=== PATIENT | male | born 1995 | race Caucasian/White ===

== ENCOUNTER 2017-05-22 01:41 | Emergency (ER) | payer SELFPAY ==
[~2017-05-22] VITALS: Ht 193 cm; Wt 88.6 kg
[2017-05-22 02:20] LABS: BASO # 0.1 (0.0-0.2); BASO % 0.8 % (0.0-2.0); EOS # 0.1 (0.0-0.7); EOS % 1.7 % (0-4.0); GRAN # 3.4 (1.4-6.5); GRAN % 54.1 % (42.2-75.2); HEMATOCRIT 45.4 % (42.0-52.0); HEMOGLOBIN 15.6 g/dl (13.5-18.0); LYMPH # 2.4 (1.2-3.4); MEAN CELL VOLUME 88 fl (80.0-100.0); MEAN CORPUSCULAR HEMOGLOBIN 30 pg (27.0-31.0); MEAN CORPUSCULAR HGB CONC 34 g/dl (33.0-37.0); MEAN PLATELET VOLUME 9.4 fl (7.4-10.4); MONO # 0.3 (0.1-0.6); MONO % 5.1 % (1.7-9.3); PLATELET COUNT 238 K/mm3 (130-400); RED BLOOD COUNT 5.19 M/mm3 (4.20-5.60); WHITE BLOOD COUNT 6.3 K/mm3 (4.8-10.8)
[2017-05-22 02:36] LABS: ADJUSTED CALCIUM 8.4 mg/dL (8.4-10.2); ALBUMIN 4.9 gm/dL (3.5-5.0); BILIRUBIN,TOTAL 0.4 mg/dL (0.0-1.0); CALCIUM 9.1 mg/dL (8.4-10.2); CREATININE, serum 0.94 mg/dL (0.66-1.25); POTASSIUM 3.8 mmol/L (3.4-5.0); TOTAL PROTEIN 7.6 gm/dL (6.4-8.2)
[2017-05-22 03:30] VITALS: BP 105/87; PULSE 67; TEMP 97.5
== END 2017-05-22 03:45 | disposition home or self-care (01) ==
LOC: COL.ER 01:41
PROVIDERS: Emergency Medicine
DX: S06.0X9A Concussion with loss of consciousness of unspecified duration, initial encounter (principal); S01.01XA Laceration without foreign body of scalp, initial encounter; F10.129 Alcohol abuse with intoxication, unspecified; W22.8XXA Striking against or struck by other objects, initial encounter; Y92.29 Other specified public building as the place of occurrence of the external cause; Y90.8 Blood alcohol level of 240 mg/100 ml or more

== ENCOUNTER → 2019-10-02 | Outpatient (CLI) | payer SELFPAY | LOC: COL.ER 15:15 | DX: Z02.83 Encounter for blood-alcohol and blood-drug test (principal) ==